=== PATIENT | male | born 1970 | race Caucasian/White ===

== ENCOUNTER 2016-10-11 03:47 | Emergency (ER) | payer OTHER ==
[2016-10-11] VITALS (7 sets, daily range): BP systolic 134–145; BP diastolic 66–85; PULSE 88–92; RESP 18; TEMP 97.5–97.7; O2SAT 92–100
[~2016-10-11] VITALS: Ht 172.7 cm; Wt 105.0 kg
[~2016-10-11 03:47] MED LIST: ALPR1 PO; CARI200T PO; HYDR10TA16 PO; LISI-363 PO; STEROID INJECTIONS EPI
[2016-10-11] MEDS ORDERED: GABA600T PO (04:11)
[2016-10-11] MEDS ORDERED: LISI-515 PO (04:11)
[2016-10-11] MEDS ORDERED: ALPR1TAB3 PO (04:11)
[2016-10-11 04:12] LABS: AUTOMATED NEUTROPHIL # 4.8 TH/MM3 (1.8-7.7); BASOPHIL % 0.5 % (0.0-2.0); EOSINOPHIL # 0.3 TH/MM3 (0-0.4); EOSINOPHIL % 3.1 % (0.0-4.0); HEMATOCRIT 41.4 % (39.0-51.0); HEMO FLAGS DIFF FINAL; LYMPH % 31.1 % (9.0-44.0); LYMPHOCYTE # 2.5 TH/MM3 (1.0-4.8); MEAN CELL VOLUME 88.6 FL (80.0-100.0); MEAN CORPUSCULAR HEMOGLOBIN 30.5 PG (27.0-34.0); MEAN CORPUSCULAR HGB CONC 34.4 % (32.0-36.0); MONO % 7.7 % (0.0-8.0); NEUT % 57.6 % (16.0-70.0); PLATELET COUNT 306 TH/MM3 (150-450); RED BLOOD COUNT 4.68 MIL/MM3 (4.50-5.90); RED CELL DISTRIBUTION WIDTH 12.4 % (11.6-17.2); WHITE BLOOD COUNT 8.2 TH/MM3 (4.0-11.0)
[2016-10-11] MEDS: SODIUM CHLOR 0.9% 1000 ML INJ 1,000 ML IV SCH ×2 (04:25→05:11)
[2016-10-11] MEDS ORDERED: HYDROmorphone HCL PF 1 MG/ML VIAL IVP ONE ×2 (04:30→04:45)
[2016-10-11] MEDS ORDERED: ONDANSETRON HCL 4 MG/2 ML VIAL IV ONE ×2 (04:30→04:45)
--- NOTE | 2016-10-11 04:30 | PD ---
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 It is associated with nausea but no vomiting. He denies any food intolerance. He states that large meals do not affect his pain. He denies any melanotic or bloody stools. He denies any abdominal distention. He denies any diarrhea. He denies any dysuria, frequency or urgency. He denies any fever. He denies any significant weight change, there may be a slight weight loss. The pain sometimes radiates to the left scapular area. It is a 7/10. The pain is mostly dull but with episodes of sharp stabbing sensation, like "someone punching me". The only medical problems he has are hypertension, anxiety and chronic back pain. He is a nondrinker of alcohol and has never smoked. He denies any cough, chest pain or shortness of breath. PFSH Past Medical History Anxiety: Yes Cardiovascular Problems: Yes Diminished Hearing: No Hypertension: Yes Musculoskeletal: Yes (BACK PAIN) Immunizations Current: Yes Tetanus Vaccination: < 5 Years Influenza Vaccination: Yes Social History Alcohol Use: No Tobacco Use: No Substance Use: No Allergies-Medications (Allergen,Severity, Reaction): Coded Allergies: Sulfa (Verified Allergy, Severe, 10/11/16) Reported Meds & Prescriptions Reported Meds & Active Scripts Active Reported Gabapentin 600 Mg Tab 600 Mg PO BID Lisinopril 20 Mg Tab 20 Mg PO DAILY Alprazolam 1 Mg Tab 1 Mg PO Q6H PRN Review of Systems Except as stated in HPI: all other systems reviewed are Neg Physical Exam Narrative GENERAL: The patient is alert, oriented 3 in moderate apparent distress with his abdominal pain. His vital signs show blood pressure 134/85 but are otherwise normal. SKIN: Warm and dry. HEAD: Atraumatic. Normocephalic. EYES: Pupils equal and round. No scleral icterus. No injection or drainage. ENT: No nasal bleeding or discharge. Mucous membranes pink and moist. NECK: Trachea midline. No JVD. CARDIOVASCULAR: Regular rate and rhythm. No murmur appreciated. RESPIRATORY: No accessory muscle use. Clear to auscultation. Breath sounds equal bilaterally. GASTROINTESTINAL: Abdomen soft, with tenderness to direct palpation in the left upper quadrant, nondistended. Hepatic and splenic margins not palpable. No masses are felt. No guarding or rebound is present. MUSCULOSKELETAL: No obvious deformities. No clubbing. No cyanosis. No edema. NEUROLOGICAL: Awake and alert. No obvious cranial nerve deficits. Motor grossly within normal limits. Normal speech. PSYCHIATRIC: Appropriate mood and affect; insight and judgment normal. RECTAL EXAM: No masses or tenderness, stool is brown and guaiac negative. Data Data Last Documented VS Vital Signs Date Time Temp Pulse Resp B/P Pulse Ox O2 Delivery O2 Flow Rate FiO2 10/11/16 06:15 18 10/11/16 06:15 88 136/66 98 Room Air 10/11/16 04:03 97.5 Orders Complete Blood Count With Diff (10/11/16 03:51) Comprehensive Metabolic Panel (10/11/16 03:51) Urinalysis - C+S If Indicated (10/11/16 03:51) Iv Access Insert/Monitor (10/11/16 03:51) Oximetry (10/11/16 03:51) Lipase (10/11/16 03:51) Ct Abd/Pel W Iv Contrast(Rout) (10/11/16 04:15) Ondansetron Inj (Zofran Inj) (10/11/16 04:30) Hydromorphone Pf Inj (Dilaudid Pf Inj) (10/11/16 04:30) Sodium Chlor 0.9% 1000 Ml Inj (Ns 1000 M (10/11/16 04:45) Ondansetron Inj (Zofran Inj) (10/11/16 04:45) Hydromorphone Pf Inj (Dilaudid Pf Inj) (10/11/16 04:45) Iohexol 350 Inj (Omnipaque 350 Inj) (10/11/16 05:11) Ketorolac Inj (Toradol Inj) (10/11/16 05:15) Morphine Inj (Morphine Inj) (10/11/16 05:45) Sodium Chlor 0.9% 1000 Ml Inj (Ns 1000 M (10/11/16 06:00) Pantoprazole Inj (Protonix Inj) (10/11/16 06:00) Famotidine Inj (Pepcid Inj) (10/11/16 06:00) Al-Mag Hy-Si 40-40-4 Mg/Ml Liq (Mag-Al P (10/11/16 06:00) Lidocaine 2% Viscous (Xylocaine 2% Visco (10/11/16 06:00) Morphine Inj (Morphine Inj) (10/11/16 06:30) Labs Laboratory Tests Test 10/11/16 10/11/16 04:00 05:55 White Blood Count 8.2 TH/MM3 Red Blood Count 4.68 MIL/MM3 Hemoglobin 14.3 GM/DL Hematocrit 41.4 % Mean Corpuscular Volume 88.6 FL Mean Corpuscular Hemoglobin 30.5 PG Mean Corpuscular Hemoglobin 34.4 % Concent Red Cell Distribution Width 12.4 % Platelet Count 306 TH/MM3 Mean Platelet Volume 7.2 FL Neutrophils (%) (Auto) 57.6 % Lymphocytes (%) (Auto) 31.1 % Monocytes (%) (Auto) 7.7 % Eosinophils (%) (Auto) 3.1 % Basophils (%) (Auto) 0.5 % Neutrophils # (Auto) 4.8 TH/MM3 Lymphocytes # (Auto) 2.5 TH/MM3 Monocytes # (Auto) 0.6 TH/MM3 Eosinophils # (Auto) 0.3 TH/MM3 Basophils # (Auto) 0.0 TH/MM3 CBC Comment DIFF FINAL Differential Comment Sodium Level 142 MEQ/L Potassium Level 3.7 MEQ/L Chloride Level 105 MEQ/L Carbon Dioxide Level 27.7 MEQ/L Anion Gap 9 MEQ/L Blood Urea Nitrogen 13 MG/DL Creatinine 1.10 MG/DL Estimat Glomerular Filtration 72 ML/MIN Rate Random Glucose 160 MG/DL Calcium Level 8.6 MG/DL Total Bilirubin 0.3 MG/DL Aspartate Amino Transf 27 U/L (AST/SGOT) Alanine Aminotransferase 60 U/L (ALT/SGPT) Alkaline Phosphatase 63 U/L Total Protein 6.9 GM/DL Albumin 3.5 GM/DL Lipase 154 U/L Urine Collection Type VOIDED Urine Color STRAW Urine Turbidity CLEAR Urine pH 5.5 Urine Specific [place] GREATER THAN 1.035 Urine Protein NEG mg/dL Urine Glucose (UA) NEG mg/dL Urine Ketones NEG mg/dL Urine Occult Blood TRACE Urine Nitrite NEG Urine Bilirubin NEG Urine Leukocyte Esterase NEG Urine RBC 0-3 /hpf Urine Squamous Epithelial 0-2 /hpf Cells Microscopic Urinalysis Comment CULT NOT INDICATED MDM Medical Decision Making Medical Screen Exam Complete: Yes Emergency Medical Condition: Yes Medical Record Reviewed: Yes Interpretation(s) The CBC is normal and the complete metabolic profile is normal except for a GFR of 72 and glucose of 160. The lipase is normal. The CT abdomen/pelvis with IV contras shows no evidence of acute abdominal or pelvic process. No masses are identified. He does have some constipation and a nonobstructing 5 mm left renal stone in the lower pole of the left kidney. Differential Diagnosis Pancreatitis, pancreatic pseudocyst, colitis, pyelonephritis, intestinal tumor, gastric ulcer, anemia, electrolyte disorder, renal insufficiency, urinary stone , urinary tract infection, dehydration Narrative Course It is now 0442 and the patient's pain has not changed despite 1 mg of Dilaudid IV. He also has some slight persistent nausea. He will be given an additional 1 mg of Dilaudid and 4 g of Zofran IV. The patient got no relief from a total of 2 mg of Dilaudid IV and 8 of Zofran IV. He is given 30 of Toradol IV and he got no relief with this. He states he gets relief from morphine and the patient was given 5 mg of morphine IV. The patient has abdominal pain of unknown etiology. He also has mild dehydration, his urine specific gravity 1.035. This may be ulcer pain and the patient may benefit from seeing a staking engineer. He has not had lower endoscopy, his age is 45 and in a few years he will need lower endoscopy to rule out rectal cancer. The patient should benefit from upper endoscopy to rule out an ulcer. There is no blood in his stool. The patient is not anemic. The lipase is normal and this does not appear to be pancreatic in origin. I do not think the patient's left renal stone is causing the patient's symptoms. The stone is nonobstructing and is well lateral of where the patient's symptoms are. However, he does have episodes of sharp pain that resemble urinary stone discomfort. He is having normal bowel movements and constipation is an unlikely source of his problem that has been going on for almost a month. Diagnosis Primary Impression: Abdominal pain of unknown etiology Additional Impressions: Constipation Dehydration Additional Instructions: As we discussed, follow-up with a staking engineer. They will be able to do an upper endoscopy to rule out gastric pathology. Even though there is no obstructing stone, it may be possible that you are getting some pain from the 5 mm left renal stone. A urologist will need to be consolidative nothing is found with gastroenterology. Disposition: 01 DISCHARGE HOME Condition: Stable Zack No MD Oct 11, 2016 04:30
[2016-10-11 04:32] LABS: CHLORIDE 105 MEQ/L (98-107); POTASSIUM 3.7 MEQ/L (3.5-5.1); SODIUM (NA) 142 MEQ/L (136-145)
[2016-10-11 04:36] LABS: ANION GAP 9 MEQ/L (5-15); BICARBONATE 27.7 MEQ/L (21.0-32.0); BLOOD UREA NITROGEN 13 MG/DL (7-18)
[2016-10-11 04:39] LABS: ALT (GPT) 60 U/L (12-78); AST (GOT) 27 U/L (15-37); GLOMERULAR FILTRATION RATE 72 ML/MIN (>89)
[2016-10-11 04:41] LABS: TOTAL BILIRUBIN ADULT 0.3 MG/DL (0.2-1.0)
[2016-10-11 04:42] LABS: ALKALINE PHOSPHATASE 63 U/L (45-117)
[2016-10-11] MEDS ORDERED: IOHEXOL 350 MG/ML 10 ML VIAL (for RAD DIAG) IV ONE (05:11)
[2016-10-11] MEDS ORDERED: KETOROLAC TROMETHAMINE 60 MG/2 ML (IM) VIAL IVP ONE (05:15)
--- NOTE | 2016-10-11 05:29 | RADHPO ---
EXAM DATE/TIME: 10/11/2016 04:53 [facility] COMPARISON: No previous studies available for comparison. INDICATIONS : Left upper quadrant pain with nausea for three weeks. IV CONTRAST: 94 cc Omnipaque 350 (iohexol) IV ORAL CONTRAST: No oral contrast ingested. RADIATION DOSE: 19.43 CTDIvol (mGy) MEDICAL HISTORY : Hypertension. SURGICAL HISTORY : None. ENCOUNTER: Initial ACUITY: 3 weeks PAIN SCALE: 6/10 LOCATION: Left upper quadrant TECHNIQUE: Volumetric scanning of the abdomen and pelvis was performed. Using automated exposure control and ad justment of the mA and/or kV according to patient size, radiation dose was kept as low as reasonably achievable to obtain optimal diagnostic quality images. FINDINGS: LOWER LUNGS: The visualized lower lungs are clear. LIVER: Homogeneous density without lesion. There is no dilation of the biliary tree. No calcified gallston es. SPLEEN: Normal size without lesion. PANCREAS: Within normal limits. KIDNEYS: Normal in size and shape. There is no mass, stone or hydronephrosis. There is a single stone within the left kidney without hydronephrosis measuring 5 mm in the lower pole ADRENAL GLANDS: Within normal limits. VASCULAR: There is no aortic aneurysm. BOWEL/MESENTERY: The stomach, small bowel, and colon demonstrate no acute abnormality. There is no free intraperitone al air or fluid. There is a large amount of fecal material throughout the colon consistent with const ipation.ABDOMINAL WALL: Within normal limits. RETROPERITONEUM: There is no lymphadenopathy. BLADDER: No wall thickening or mass. REPRODUCTIVE: Within normal limits. INGUINAL: There is no lymphadenopathy or hernia. MUSCULOSKELETAL: Within normal limits for patient age. CONCLUSION: 1. No evidence of acute abdominal or pelvic process. No masses are identified. 2. Constipation 3. Nonobstructing left renal stone Matthew Boudreaux MD on October 11, 2016 at 5:22 Board Certified Radiologist. This report was verified electronically.
[2016-10-11] MEDS ORDERED: MORPHINE SULFATE 8 MG/ML INJ IV PUSH ONE ×2 (05:45→06:30)
[2016-10-11 06:00] LABS: BLOOD, URINE TRACE (NEG); GLUCOSE,URINE NEG (NEG); KETONE, URINE NEG (NEG); NITRITE,URINE NEG (NEG); PH, URINE 5.5 (5.0-8.5)
[2016-10-11] MEDS ORDERED: LIDOCAINE VISCOUS 2% SOLN 15 ML UDC PO ONE (06:00)
[2016-10-11] MEDS ORDERED: PANTOPRAZOLE SODIUM 40 MG VIAL IVP ONE (06:00)
[2016-10-11] MEDS ORDERED: ALUMINUM/MAGNESIUM/SIMETH 30 ML CUP PO ONE (06:00)
[2016-10-11] MEDS ORDERED: FAMOTIDINE 20 MG/2 ML VIAL IV PUSH ONE (06:00)
[2016-10-11] MEDS ORDERED: SODIUM CHLOR 0.9% 1000 ML INJ 1,000 ML IV SCH (06:00)
[2016-10-11 06:03] LABS: METHOD OF COLLECTION VOIDED; URINE COLOR STRAW (YELLW/STRAW)
[2016-10-11 06:05] LABS: RBC, URINE 0-3 /hpf (0-3)
[2016-10-11 06:06] LABS: COMMENT (UR) CULT NOT INDICATED; CULTURE IF INDICATED CULT NOT INDICATED; SQUAMOUS EPITHELIAL CELL URINE 0-2 /hpf (0-5)
== END 2016-10-11 07:31 | disposition home or self-care (01) ==
LOC: PHED 03:47
DX: R10.12 Left upper quadrant pain (principal); K59.00 Constipation, unspecified; E86.0 Dehydration; I10 Essential (primary) hypertension; N20.0 Calculus of kidney
CPT/HCPCS: 74177; 80053; 81001; 83690; 85025; 96361; 96374; 96375; 96376; 99284; C9113; J1170; J1885; J2270; J2405; J7030; Q9967

== ENCOUNTER 2016-10-13 00:42 | Emergency (ER) | payer OTHER ==
[~2016-10-13] VITALS: Ht 172.7 cm; Wt 106.0 kg
[~2016-10-13 00:42] MED LIST changes: -ALPR1 PO; +ALPR1TAB3 PO; -CARI200T PO; +GABA600T PO; -HYDR10TA16 PO; -LISI-363 PO; +LISI-515 PO; -STEROID INJECTIONS EPI
[2016-10-13 00:56] VITALS: BP 139/91; PULSE 86; RESP 18; TEMP 98.3; O2SAT 97
[2016-10-13] MEDS ORDERED: SODIUM CHLORIDE 0.9% FLUSH 5 ML FLUSH IVF PRN (01:15)
[2016-10-13] MEDS ORDERED: ONDANSETRON HCL 4 MG/2 ML VIAL IV PUSH ONE (01:15)
[2016-10-13] MEDS ORDERED: KETOROLAC TROMETHAMINE 30 MG/ML (IVP) VIAL IV PUSH ONE (01:15)
[2016-10-13] MEDS ORDERED: HYDR-3535 PO (01:16)
[2016-10-13 01:30] VITALS: O2SAT 99
[2016-10-13 01:43] LABS: AUTOMATED NEUTROPHIL # 5.7 TH/MM3 (1.8-7.7); BASOPHIL % 0.3 % (0.0-2.0); EOSINOPHIL # 0.3 TH/MM3 (0-0.4); EOSINOPHIL % 3.4 % (0.0-4.0); HEMATOCRIT 40.4 % (39.0-51.0); HEMO FLAGS DIFF FINAL; LYMPH % 24.2 % (9.0-44.0); LYMPHOCYTE # 2.1 TH/MM3 (1.0-4.8); MEAN CELL VOLUME 89.4 FL (80.0-100.0); MEAN CORPUSCULAR HEMOGLOBIN 30.7 PG (27.0-34.0); MEAN CORPUSCULAR HGB CONC 34.4 % (32.0-36.0); MONO % 7.4 % (0.0-8.0); NEUT % 64.7 % (16.0-70.0); PLATELET COUNT 283 TH/MM3 (150-450); RED BLOOD COUNT 4.52 MIL/MM3 (4.50-5.90); RED CELL DISTRIBUTION WIDTH 13.2 % (11.6-17.2); WHITE BLOOD COUNT 8.7 TH/MM3 (4.0-11.0)
[2016-10-13 01:58] LABS: CHLORIDE 108 MEQ/L (98-107); POTASSIUM 3.9 MEQ/L (3.5-5.1); SODIUM (NA) 145 MEQ/L (136-145)
[2016-10-13 02:01] LABS: ANION GAP 8 MEQ/L (5-15); BICARBONATE 28.8 MEQ/L (21.0-32.0); BLOOD UREA NITROGEN 9 MG/DL (7-18); MAGNESIUM 2.4 MG/DL (1.5-2.5)
[2016-10-13 02:04] LABS: ALT (GPT) 49 U/L (12-78); AST (GOT) 24 U/L (15-37); GLOMERULAR FILTRATION RATE 72 ML/MIN (>89)
[2016-10-13 02:06] LABS: TOTAL BILIRUBIN ADULT 0.3 MG/DL (0.2-1.0)
[2016-10-13 02:07] LABS: ALKALINE PHOSPHATASE 50 U/L (45-117)
--- NOTE | 2016-10-13 02:36 | PD ---
HPI Chief Complaint: Abdominal Pain Time Seen by Provider: 02:27 Travel History International Travel<30 days: No Contact w/Intl Traveler<30days: No Traveled to known affect area: No History of Present Illness HPI 45-year-old male presents to the emergency department from work for evaluation of left upper quadrant abdominal pain. Symptoms have been present for several weeks. Patient was recently seen 10/11/16 for same complaint. At that time patient's pain was 7/10 in intensity and radiated to his left scapular area. Patient underwent imaging study which revealed by CT abdomen and pelvis noncontrast a nonobstructing 5 mm kidney stones in the left kidney. Lab work was otherwise unremarkable. Patient received multiple medications in the emergency department including Zofran Dilaudid and morphine and Toradol. Patient was encouraged to follow-up with his primary care provider follow up with the ops manager and follow-up with an urologist as needed. He should reports this evening while at work symptoms persisted and develop nausea so decided to be seen in the emergency department. Patient reports that he is able to grab the area by grabbing his left anterior lower rib area and reproduce the pain. Patient denies any injury or fall. Patient does not report any skin rash area. Patient does have history of hypertension but does not smoke cigarettes is not diabetic does not have dyslipidemia and no family history premature onset heart disease. Patient does report father in his 40s from a cerebral aneurysm mother early due to complications from cancer a sibling at 37 with complications from lupus. Patient's had no recent febrile illness or respiratory illness. Patient does not report any pleuritic pain. Patient does not report any shortness of breath. Patient is unable to identify exacerbating or alleviating factors. Currently pain is described as 5/10 in intensity. Patient does have prescription for pain medication at home but does not take this medication. PFSH Past Medical History Narrative Medical Anxiety hypertension chronic low back pain no tobacco use no alcohol use nursing notes reviewed Anxiety: Yes Cardiovascular Problems: Yes Diminished Hearing: No Hypertension: Yes Musculoskeletal: Yes (BACK PAIN) Immunizations Current: Yes Tetanus Vaccination: < 5 Years Social History Alcohol Use: No Tobacco Use: No Substance Use: No Allergies-Medications (Allergen,Severity, Reaction): Coded Allergies: Sulfa (Verified Allergy, Severe, Anaphylaxis, 10/13/16) Reported Meds & Prescriptions Reported Meds & Active Scripts Active Reported Lortab (Hydrocodone-Acetaminophen) 10-325 Mg Tab 1 Tab PO Q6H PRN Gabapentin 600 Mg Tab 600 Mg PO TID Lisinopril 20 Mg Tab 20 Mg PO DAILY Alprazolam 1 Mg Tab 0.5 Mg PO BID Review of Systems General / Constitutional: No: Fever HENT: No: Congestion Cardiovascular: No: Chest Pain or Discomfort Respiratory: No: Shortness of Breath Gastrointestinal: Positive: Abdominal Pain (LUQ) Genitourinary: No: Dysuria, Flank Pain Musculoskeletal: Positive: Myalgias, Arthralgias, Pain (chronic low back pain) Skin: No Hives Neurologic: No: Weakness Psychiatric: No: Anxiety Hematologic/Lymphatic: No: Easy Bruising Physical Exam Narrative GENERAL: Well-developed well-nourished male in no acute distress no respiratory distress SKIN: Warm and dry. HEAD: Normocephalic. EYES: No scleral icterus. No injection or drainage. NECK: Supple, trachea midline. No JVD or lymphadenopathy. CARDIOVASCULAR: Regular rate and rhythm without murmurs, gallops, or rubs. RESPIRATORY: Breath sounds equal bilaterally. No accessory muscle use. GASTROINTESTINAL: Abdomen soft, mild tenderness to palpation left upper quadrant at the lower anterior left rib no ecchymosis no abrasion no vesicular rash, nondistended. No guarding or rebound. MUSCULOSKELETAL: No cyanosis, or edema. BACK: Nontender without obvious deformity. No CVA tenderness. Data Data Last Documented VS Vital Signs Date Time Temp Pulse Resp B/P Pulse Ox O2 Delivery O2 Flow Rate FiO2 10/13/16 02:48 77 16 121/62 96 10/13/16 01:30 Room Air 10/13/16 00:56 98.3 Orders Complete Blood Count With Diff (10/13/16 01:15) Comprehensive Metabolic Panel (10/13/16 01:15) Lipase (10/13/16 01:15) Iv Access Insert/Monitor (10/13/16 01:15) Ecg Monitoring (10/13/16 01:15) Oximetry (10/13/16 01:15) Sodium Chloride 0.9% Flush (Ns Flush) (10/13/16 01:15) Electrocardiogram (10/13/16 01:15) Troponin I (10/13/16 01:15) Ondansetron Inj (Zofran Inj) (10/13/16 01:15) Ketorolac Inj (Toradol Inj) (10/13/16 01:15) Magnesium (Mg) (10/13/16 01:15) Labs Laboratory Tests Test 10/13/16 01:32 White Blood Count 8.7 TH/MM3 Red Blood Count 4.52 MIL/MM3 Hemoglobin 13.9 GM/DL Hematocrit 40.4 % Mean Corpuscular Volume 89.4 FL Mean Corpuscular Hemoglobin 30.7 PG Mean Corpuscular Hemoglobin 34.4 % Concent Red Cell Distribution Width 13.2 % Platelet Count 283 TH/MM3 Mean Platelet Volume 7.4 FL Neutrophils (%) (Auto) 64.7 % Lymphocytes (%) (Auto) 24.2 % Monocytes (%) (Auto) 7.4 % Eosinophils (%) (Auto) 3.4 % Basophils (%) (Auto) 0.3 % Neutrophils # (Auto) 5.7 TH/MM3 Lymphocytes # (Auto) 2.1 TH/MM3 Monocytes # (Auto) 0.6 TH/MM3 Eosinophils # (Auto) 0.3 TH/MM3 Basophils # (Auto) 0.0 TH/MM3 CBC Comment DIFF FINAL Differential Comment Sodium Level 145 MEQ/L Potassium Level 3.9 MEQ/L Chloride Level 108 MEQ/L Carbon Dioxide Level 28.8 MEQ/L Anion Gap 8 MEQ/L Blood Urea Nitrogen 9 MG/DL Creatinine 1.10 MG/DL Estimat Glomerular Filtration 72 ML/MIN Rate Random Glucose 94 MG/DL Calcium Level 8.3 MG/DL Magnesium Level 2.4 MG/DL Total Bilirubin 0.3 MG/DL Aspartate Amino Transf 24 U/L (AST/SGOT) Alanine Aminotransferase 49 U/L (ALT/SGPT) Alkaline Phosphatase 50 U/L Troponin I LESS THAN 0.02 NG/ML Total Protein 6.8 GM/DL Albumin 3.6 GM/DL Lipase 117 U/L [facility] Medical Decision Making Medical Screen Exam Complete: Yes Emergency Medical Condition: Yes Medical Record Reviewed: Yes Interpretation(s) EKG normal sinus rhythm rate [address] elevation or injury pattern change noted CBC & BMP Diagram 10/13/16 01:32 troponin I: less than 0.02, not elevated Differential Diagnosis Abdominal pain, abdominal wall pain, gastritis, peptic ulcer disease, atypical choledocholithiasis, pancreatitis, ACS, shingles Narrative Course IV access obtained specimens collected and sent for resulting EKG ordered EKG reveals no acute ST elevation or injury pattern change; patient administer Toradol and Zofran Advise resulted and found to be grossly within normal limits: Patient stable for outpatient management Patient encouraged to keep appointments as presently scheduled and follow-up as presently scheduled and to return to the emergency department for any concerns Diagnosis Primary Impression: Abdominal pain of unknown etiology Referrals: Primary Care Physician call for appointment Patient Instructions: General Instructions Additional Instructions: Follow-up with your primary care provider Keep appointment with ops manager as currently scheduled Follow-up with your primary care provider Return to the emergency department for any concerns or change in condition Take ibuprofen/Motrin/Advil every 6-8 hours as tolerated Continue current prescription medications as presently prescribed Med/Other Pt SpecificInfo: No Change to Meds Disposition: 01 DISCHARGE HOME Condition: Stable Caridad Woodruff MD Oct 13, 2016 02:36
[2016-10-13 02:48] VITALS: BP 121/62
--- NOTE | 2016-10-14 06:53 | EKG ---
Date Performed: 10/13/2016 Time Performed: 01:19:36 PTAGE: 45 years EKG: Sinus rhythm . Nonspecific ST-T wave changes Compared to prior tracing no significant change PREVIOUS TRACING : 12/23/2011 11.24 DOCTOR: Omid Corona Interpretating Date/Time 10/14/2016 06:52:04
== END 2016-10-13 02:50 | disposition home or self-care (01) ==
LOC: PHED 00:42
DX: R10.12 Left upper quadrant pain (principal); R11.0 Nausea; I10 Essential (primary) hypertension; Z86.59 Personal history of other mental and behavioral disorders; Z87.39 Personal history of other diseases of the musculoskeletal system and connective tissue; Z86.79 Personal history of other diseases of the circulatory system
CPT/HCPCS: 80053; 83690; 83735; 84484; 85025; 93005; 96374; 96375; 99284; J1885; J2405

== ENCOUNTER 2017-03-24 03:18 | Emergency (ER) | payer SELFPAY ==
[~2017-03-24] VITALS: Ht 172.7 cm; Wt 99.0 kg
[~2017-03-24 03:18] MED LIST changes: +HYDR-3535 PO
[2017-03-24 03:24] VITALS: BP 157/73; PULSE 75; RESP 18; TEMP 98.3; O2SAT 99
--- NOTE | 2017-03-24 03:40 | PD ---
HPI Chief Complaint: right arm injury Time Seen by Provider: 03:34 Travel History International Travel<30 days: No Contact w/Intl Traveler<30days: No Traveled to known affect area: No History of Present Illness HPI 46-year-old male patient presents to the ER today, states that he had been lifting a mattress 3 days ago and felt pain in the right mid humeral region. He states he has been having pain since then and now feels tingling in his right first and second digits. He states that that has happened over last day or so. He denies any other issues or injuries. Modifying Factors: None Associated Signs & Symptoms: Right arm injury Risk Factors: None PFSH Past Medical History Anxiety: Yes Cardiovascular Problems: Yes Diminished Hearing: No Hypertension: Yes Musculoskeletal: Yes (BACK PAIN) Immunizations Current: Yes Social History Alcohol Use: No Tobacco Use: No Substance Use: No Allergies-Medications (Allergen,Severity, Reaction): Coded Allergies: Sulfa (Verified Allergy, Severe, Anaphylaxis, 03/24/17) Reported Meds & Prescriptions Reported Meds & Active Scripts Active No Active Prescriptions or Reported Medications Review of Systems Except as stated in HPI: all other systems reviewed are Neg Physical Exam Narrative GENERAL: Well-nourished, well-developed middle age male patient in mild distress. Awake and oriented 3. SKIN: Focused skin assessment warm/dry. HEAD: Normocephalic. EYES: No scleral icterus. No injection or drainage. NECK: Supple, trachea midline. No JVD or lymphadenopathy. EXTREMITIES: No clubbing, cyanosis, or edema. No joint tenderness, effusion, or edema noted. There is tenderness to palpation in the right mid humeral area, biceps muscle level with no palpable deformities. Arm is otherwise neurovascularly intact with paresthesia in the right first 2 digits. 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 Normal digital flexion in all fingers. MUSCULOSKELETAL: No cyanosis, or edema. BACK: Nontender without obvious deformity. No CVA tenderness. Data Data Last Documented VS Vital Signs Date Time Temp Pulse Resp B/P Pulse Ox O2 Delivery O2 Flow Rate FiO2 03/24/17 03:45 75 03/24/17 03:42 98.3 18 157/73 99 Orders Humerus (Min 2vws) (03/24/17 03:34) Tramadol-Acetamin 37.5-325 Mg (Ultracet (03/24/17 03:45) MDM Medical Decision Making Medical Screen Exam Complete: Yes Emergency Medical Condition: Yes Medical Record Reviewed: Yes Interpretation(s) Last 24 hours Impressions Humerus X-Ray 03/24/17 0334 Signed Impressions: Service Date/Time: Friday, March 24, 2017 03:46 - CONCLUSION: Negative two-view trauma study. Cheikh Ramirez MD Differential Diagnosis Right arm injurymuscle strain versus tendon injury versus bony injury Narrative Course X-ray did not show any signs of acute bony injuries. Patient had been given tramadol in the ER for symptomatic relief or pain. At this point, my plan would be to place him in a arm sling and have him follow-up with orthopedics for any ongoing symptoms. Return for any worsening in pain or new symptoms as needed. The plan has been discussed with him and he states understanding. Continue taking Aleve as needed for pain and tramadol as needed for any further relief. Arm sling given in the ER. Avoid heavy lifting and strenuous activity with the right arm. Diagnosis Primary Impression: Muscle strain, upper arm Med/Other Pt SpecificInfo: Prescription(s) given Scripts Tramadol 50 Mg Tab50 Mg PO Q6H PRN (PAIN) #15 TAB Ref 0 Prov:Maria Del Carmen Gross MD 03/24/17 Disposition: 01 DISCHARGE HOME Condition: Stable Maria Del Carmen Gross MD Mar 24, 2017 03:40
[2017-03-24 03:42] VITALS: BP 157/73; PULSE 75; RESP 18; TEMP 98.3; O2SAT 99
[2017-03-24] MEDS ORDERED: traMADol/ACETAMINOPHEN 37.5/325 1 TAB PO ONE (03:45)
--- NOTE | 2017-03-24 04:00 | RADRPT ---
EXAM DATE/TIME: 03/24/2017 03:46 [facility] COMPARISON: No previous studies available for comparison. INDICATIONS : Right humerus pain from unknown injury. MEDICAL HISTORY : Prior injury to right shoulder. SURGICAL HISTORY : None. ENCOUNTER: Initial ACUITY: 1 day PAIN SCORE: 10/10 LOCATION: Right proximal humerus. FINDINGS: Two view examination of the right humerus demonstrates no evidence of fracture or dislocation. Bony mineralization is normal. The soft tissue structures are intact. CONCLUSION: Negative two-view trauma study. Cheikh Ramirez MD on March 24, 2017 at 3:58 Board Certified Radiologist. This report was verified electronically.
[2017-03-24] MEDS ORDERED: TRAM50TA PO (04:17)
[2017-03-24 04:38] VITALS: BP 148/72; PULSE 72; RESP 18; O2SAT 99
== END 2017-03-24 04:39 | disposition home or self-care (01) ==
LOC: PHED 03:18
DX: S46.811A Strain of other muscles, fascia and tendons at shoulder and upper arm level, right arm, initial encounter (principal); I10 Essential (primary) hypertension; X50.0XXA Overexertion from strenuous movement or load, initial encounter; Y92.003 Bedroom of unspecified non-institutional (private) residence as the place of occurrence of the external cause
CPT/HCPCS: 73060; 99283

== ENCOUNTER 2017-07-24 11:22 | Emergency (ER) | payer SELFPAY ==
[~2017-07-24 11:22] MED LIST changes: -ALPR1TAB3 PO; -GABA600T PO; -HYDR-3535 PO; -LISI-515 PO; +TRAM50TA PO
[2017-07-24 11:42] VITALS: BP 153/80; PULSE 82; RESP 18; TEMP 98; O2SAT 98
[2017-07-24] MEDS ORDERED: HYDR-3583 PO (11:45)
[2017-07-24] MEDS ORDERED: AMBI5TAB PO (11:45)
[2017-07-24] MEDS ORDERED: GABA600T PO (11:45)
[2017-07-24] MEDS ORDERED: SODIUM CHLOR 0.9% 1000 ML INJ 1,000 ML IV SCH (11:54)
[2017-07-24] MEDS ORDERED: ONDANSETRON HCL 4 MG/2 ML VIAL IVP ONE (12:00)
[2017-07-24] MEDS ORDERED: SODIUM CHLORIDE 0.9% FLUSH 10 ML FLUSH IV FLUSH PRN (12:00)
[2017-07-24] MEDS ORDERED: MORPHINE SULFATE 4 MG/ML INJ IV PUSH ONE (12:00)
--- NOTE | 2017-07-24 12:00 | PD ---
HPI Chief Complaint: Abdominal Pain Time Seen by Provider: 11:47 Travel History International Travel<30 days: No Contact w/Intl Traveler<30days: No Traveled to known affect area: No History of Present Illness HPI 46-year-old male complains of abdominal pain, a lump on the right side of the abdomen, nausea vomiting. Patient states that he started having right-sided back pain 4 days ago. Patient started having nausea vomiting and a lump on the right side abdomen since last night. Patient denies any fever chills. Patient denies any injury to the abdomen. Patient has history of chronic back pain and has been taking gabapentin. Patient takes hydrocodone occasionally for severe pain. Patient denies any headache. Patient denies any chest pain or shortness of breath. Patient denies any dysuria or frequency. Patient states that the pain is cramping pain localized to right side the abdomen. Patient denies any pain radiation. On a scale of 1-10 the pain is an 8. PFSH Past Medical History Anxiety: Yes Cardiovascular Problems: Yes Diminished Hearing: No Hypertension: Yes Musculoskeletal: Yes (BACK PAIN) Immunizations Current: Yes Influenza Vaccination: Yes ?: Not Social History Alcohol Use: No Tobacco Use: No Substance Use: No Allergies-Medications (Allergen,Severity, Reaction): Coded Allergies: Sulfa (Sulfonamide Antibiotics) (Unverified Allergy, Severe, Anaphylaxis, 07/24/17) Reported Meds & Prescriptions Reported Meds & Active Scripts Active Reported Ambien (Zolpidem Tartrate) 5 Mg Tab 5 Mg PO HS PRN Gabapentin 600 Mg Tab 600 Mg PO TID Hydrocodone-Acetaminophen 10-325 mg Tab 1 Tab PO Q4H PRN Review of Systems General / Constitutional: No: Fever Eyes: No: Visual changes HENT: No: Headaches Cardiovascular: No: Chest Pain or Discomfort Respiratory: No: Shortness of Breath Gastrointestinal: Positive: Nausea, Vomiting, Abdominal Pain Genitourinary: No: Dysuria Musculoskeletal: No: Pain Skin: No Rash Neurologic: No: Weakness Psychiatric: No: Depression Endocrine: No: Polydipsia Hematologic/Lymphatic: No: Easy Bruising Physical Exam Narrative GENERAL: Well-nourished, well-developed patient. SKIN: Focused skin assessment warm/dry. HEAD: Normocephalic. EYES: No scleral icterus. No injection or drainage. NECK: Supple, trachea midline. No JVD or lymphadenopathy. CARDIOVASCULAR: Regular rate and rhythm without murmurs, gallops, or rubs. RESPIRATORY: Breath sounds equal bilaterally. No accessory muscle use. GASTROINTESTINAL: Abdomen soft, nondistended. Patient has soft tissue mass right side abdomen right flank area. Mild tenderness on palpation. No redness no heat noted on the overlying skin. MUSCULOSKELETAL: No cyanosis, or edema. BACK: Nontender without obvious deformity. No CVA tenderness. Neurologic exam normal. Data Data Last Documented VS Vital Signs Date Time Temp Pulse Resp B/P (MAP) Pulse Ox O2 Delivery O2 Flow Rate FiO2 07/24/17 13:07 83 18 138/61 (86) 100 07/24/17 12:07 Room Air 07/24/17 11:42 98.0 Orders Orders Complete Blood Count With Diff (07/24/17 11:54) Comprehensive Metabolic Panel (07/24/17 11:54) Lipase (07/24/17 11:54) Urinalysis - C+S If Indicated (07/24/17 11:54) Ct Abd/Pel W Iv Contrast(Rout) (07/24/17 11:54) Iv Access Insert/Monitor (07/24/17 11:54) Ecg Monitoring (07/24/17 11:54) Oximetry (07/24/17 11:54) Morphine Inj (Morphine Inj) (07/24/17 12:00) Ondansetron Inj (Zofran Inj) (07/24/17 12:00) Sodium Chlor 0.9% 1000 Ml Inj (Ns 1000 M (07/24/17 11:54) Sodium Chloride 0.9% Flush (Ns Flush) (07/24/17 12:00) Iohexol 350 Inj (Omnipaque 350 Inj) (07/24/17 12:58) Labs Laboratory Tests Test 07/24/17 12:00 07/24/17 13:00 White Blood Count 7.6 TH/MM3 Red Blood Count 4.76 MIL/MM3 Hemoglobin 14.5 GM/DL Hematocrit 42.7 % Mean Corpuscular Volume 89.7 FL Mean Corpuscular Hemoglobin 30.4 PG Mean Corpuscular Hemoglobin Concent 33.9 % Red Cell Distribution Width 12.3 % Platelet Count 237 TH/MM3 Mean Platelet Volume 7.6 FL Neutrophils (%) (Auto) 70.5 % Lymphocytes (%) (Auto) 18.9 % Monocytes (%) (Auto) 7.6 % Eosinophils (%) (Auto) 2.1 % Basophils (%) (Auto) 0.9 % Neutrophils # (Auto) 5.3 TH/MM3 Lymphocytes # (Auto) 1.4 TH/MM3 Monocytes # (Auto) 0.6 TH/MM3 Eosinophils # (Auto) 0.2 TH/MM3 Basophils # (Auto) 0.1 TH/MM3 CBC Comment DIFF FINAL Differential Comment Blood Urea Nitrogen 17 MG/DL Creatinine 1.00 MG/DL Random Glucose 99 MG/DL Total Protein 6.9 GM/DL Albumin 3.7 GM/DL Calcium Level 8.3 MG/DL Alkaline Phosphatase 48 U/L Aspartate Amino Transf (AST/SGOT) 16 U/L Alanine Aminotransferase (ALT/SGPT) 21 U/L Total Bilirubin 0.4 MG/DL Sodium Level 140 MEQ/L Potassium Level 3.6 MEQ/L Chloride Level 103 MEQ/L Carbon Dioxide Level 31.4 MEQ/L Anion Gap 6 MEQ/L Estimat Glomerular Filtration Rate 80 ML/MIN Lipase 90 U/L Urine Collection Type VOIDED Urine Color STRAW Urine Turbidity CLEAR Urine pH 6.0 Urine Specific [place] 1.012 Urine Protein NEG mg/dL Urine Glucose (UA) NEG mg/dL Urine Ketones NEG mg/dL Urine Occult Blood NEG Urine Nitrite NEG Urine Bilirubin NEG Urine Leukocyte Esterase NEG Urine WBC 0-2 /hpf Urine Squamous Epithelial Cells 0-1 /hpf Microscopic Urinalysis Comment CULT NOT INDICATED MDM Medical Decision Making Medical Screen Exam Complete: Yes Emergency Medical Condition: Yes Interpretation(s) Last Impressions Abdomen/Pelvis CT 07/24/17 1154 Signed Impressions: Service Date/Time: Monday, July 24, 2017 12:41 - CONCLUSION: 1. Mild asymmetrical prominence of the right rectus muscle in the anterior abdominal wall subcutaneous adipose tissues just above the level of the umbilicus without focal mass or discernible hematoma. Correlate for site of palpable abnormality. Otherwise, no focal mass or abnormality in the bowel wall or flank. 2. Redemonstration of nonobstructing 6 mm inferior pole left renal calyceal calculus. 3. Otherwise, stable examination. Elton To MD 1323 PM. CBC within normal limit. CMP within normal limit. UA is negative. Differential Diagnosis Differential diagnosis including hernia, colitis, UTI, pyelonephritis, nephrolithiasis. Narrative Course 46-year-old male with soft tissue mass right side abdomen and abdominal pain and nausea vomiting. Diagnosis Primary Impression: Abdominal pain of unknown etiology Patient Instructions: General Instructions Additional Instructions: Mobic as needed for pain. Follow-up with personal physician. Return if worse. Med/Other Pt SpecificInfo: Prescription(s) given Scripts Meloxicam (Mobic) 15 Mg Tab 15 MG PO DAILY for Pain, #20 TAB 0 Refills Prov: Patrick Adamson MD 07/24/17 Disposition: 01 DISCHARGE HOME Condition: Stable Patrick Adamson MD Jul 24, 2017 12:00
[2017-07-24 12:06] LABS: AUTOMATED NEUTROPHIL # 5.3 TH/MM3 (1.8-7.7); BASOPHIL # 0.1 TH/MM3 (0-0.2); BASOPHIL % 0.9 % (0.0-2.0); EOSINOPHIL # 0.2 TH/MM3 (0-0.4); EOSINOPHIL % 2.1 % (0.0-4.0); HEMATOCRIT 42.7 % (39.0-51.0); HEMO FLAGS DIFF FINAL; LYMPH % 18.9 % (9.0-44.0); LYMPHOCYTE # 1.4 TH/MM3 (1.0-4.8); MEAN CELL VOLUME 89.7 FL (80.0-100.0); MEAN CORPUSCULAR HEMOGLOBIN 30.4 PG (27.0-34.0); MEAN CORPUSCULAR HGB CONC 33.9 % (32.0-36.0); MONO % 7.6 % (0.0-8.0); NEUT % 70.5 % (16.0-70.0); PLATELET COUNT 237 TH/MM3 (150-450); RED BLOOD COUNT 4.76 MIL/MM3 (4.50-5.90); RED CELL DISTRIBUTION WIDTH 12.3 % (11.6-17.2); WHITE BLOOD COUNT 7.6 TH/MM3 (4.0-11.0)
[2017-07-24 12:07] VITALS: BP 166/79; PULSE 73; RESP 18; O2SAT 98
[2017-07-24 12:13] LABS: CHLORIDE 103 MEQ/L (98-107); POTASSIUM 3.6 MEQ/L (3.5-5.1); SODIUM (NA) 140 MEQ/L (136-145)
[2017-07-24 12:17] LABS: ANION GAP 6 MEQ/L (5-15); BICARBONATE 31.4 MEQ/L (21.0-32.0); BLOOD UREA NITROGEN 17 MG/DL (7-18)
[2017-07-24 12:20] LABS: ALT (GPT) 21 U/L (12-78); AST (GOT) 16 U/L (15-37); GLOMERULAR FILTRATION RATE 80 ML/MIN (>89)
[2017-07-24 12:22] LABS: TOTAL BILIRUBIN ADULT 0.4 MG/DL (0.2-1.0)
[2017-07-24 12:23] LABS: ALKALINE PHOSPHATASE 48 U/L (45-117)
[2017-07-24] MEDS ORDERED: IOHEXOL 350 MG/ML 10 ML VIAL (for RAD DIAG) IVCONTRAST ONE (12:58)
[2017-07-24 13:07] VITALS: BP 138/61; PULSE 83; RESP 18; O2SAT 100
[2017-07-24 13:11] LABS: BLOOD, URINE NEG (NEG); GLUCOSE,URINE NEG (NEG); KETONE, URINE NEG (NEG); NITRITE,URINE NEG (NEG)
--- NOTE | 2017-07-24 13:14 | RADRPT ---
EXAM DATE/TIME: 07/24/2017 12:41 [facility] COMPARISON: CT ABDOMEN & PELVIS W CONTRAST, October 11, 2016, 4:53. INDICATIONS : Soft tissue mass, right side of abdomen and flank. IV CONTRAST: 81 cc Omnipaque 350 (iohexol) IV ORAL CONTRAST: No oral contrast ingested. RADIATION DOSE: 17.16 CTDIvol (mGy) MEDICAL HISTORY : Hypertension. SURGICAL HISTORY : None. ENCOUNTER: Initial ACUITY: 1 day PAIN SCALE: 6/10 LOCATION: Right flank TECHNIQUE: Volumetric scanning of the abdomen and pelvis was performed. Using automated exposure control and adjustment of the mA and/or kV according to patient size, radiation dose was kept as low as reasonably achievable to obtain optimal diagnostic quality images. DICOM format image data is av ailable electronically for review and comparison. FINDINGS: LOWER LUNGS: The visualized lower lungs are clear. LIVER: Stable subcentimeter hypodense lesions in the segments 6 and 4 the liver which are too sma ll to fully characterize. Liver is otherwise unremarkable. Gallbladder is unremarkable by CT. SPLEEN: Normal size without lesion. PANCREAS: Within normal limits. KIDNEYS: Stable small 6 mm calcified calculus in the posterior inferior pole the left kidney. Kid neys otherwise have is asymmetrical enhancement without evidence for hydronephrosis. ADRENAL GLANDS: Within normal limits. VASCULAR: There is no aortic aneurysm. BOWEL/MESENTERY: The stomach, small bowel, and colon demonstrate no acute abnormality. There is no free intraperitoneal air or fluid. ABDOMINAL WALL: Very small fat containing periumbilical hernia. There is mild asymmetric prominen ce of the right anterior abdominal subcutaneous adipose tissue without a focal mass. There is also sl ight asymmetrical prominence of the right rectus muscle again without a focal discernible mass. RETROPERITONEUM: There is no lymphadenopathy. BLADDER: No wall thickening or mass. REPRODUCTIVE: Within normal limits. INGUINAL: There is no lymphadenopathy or hernia. MUSCULOSKELETAL: Within normal limits for patient age. CONCLUSION: 1. Mild asymmetrical prominence of the right rectus muscle in the anterior abdominal wall subcutaneou s adipose tissues just above the level of the umbilicus without focal mass or discernible hematoma. C orrelate for site of palpable abnormality. Otherwise, no focal mass or abnormality in the bowel wall or flank. 2. Redemonstration of nonobstructing 6 mm inferior pole left renal calyceal calculus. 3. Otherwise, stable examination. Elton To MD on July 24, 2017 at 13:02 Board Certified Radiologist. This report was verified electronically.
[2017-07-24 13:17] LABS: COMMENT (UR) CULT NOT INDICATED; CULTURE IF INDICATED CULT NOT INDICATED; METHOD OF COLLECTION VOIDED; SQUAMOUS EPITHELIAL CELL URINE 0-1 /hpf (0-5); URINE COLOR STRAW (YELLW/STRAW); WBC, URINE 0-2 /hpf (0-5)
[2017-07-24] MEDS ORDERED: MOBI15TA PO (13:25)
== END 2017-07-24 13:46 | disposition home or self-care (01) ==
LOC: PHED 11:22
DX: R10.9 Unspecified abdominal pain (principal); M54.9 Dorsalgia, unspecified
CPT/HCPCS: 74177; 80053; 81001; 83690; 85025; 96361; 96374; 96375; 99285; J2270; J2405; J7030; Q9967

== ENCOUNTER 2017-08-03 14:26 | Emergency (ER) | payer SELFPAY ==
[~2017-08-03 14:26] MED LIST changes: +AMBI5TAB PO; +GABA600T PO; +HYDR-3583 PO; +MOBI15TA PO; -TRAM50TA PO
[2017-08-03 14:52] VITALS: BP 143/86; PULSE 84; RESP 20; TEMP 98; O2SAT 98
[2017-08-03] MEDS ORDERED: BACL10TA PO (15:09)
--- NOTE | 2017-08-03 16:18 | PD ---
HPI Chief Complaint: Abdominal Pain Time Seen by Provider: 15:17 Travel History International Travel<30 days: No Contact w/Intl Traveler<30days: No Traveled to known affect area: No History of Present Illness HPI This patient complains of a bulging out in the right side of his abdominal wall. Been going on 10 days. It causes some pain and discomfort there. He also has some very hypersensitive skin over the region. He's noticed no rash. He was here 10 days ago for the same thing and had a negative CT of abdomen and pelvis. Symptoms severity is moderate. No trauma or injury or fever. No alleviating factors. PFSH Past Medical History Anxiety: Yes Cardiovascular Problems: Yes Diminished Hearing: No Hypertension: Yes Musculoskeletal: Yes (BACK PAIN) Immunizations Current: Yes Social History Alcohol Use: No Tobacco Use: No Substance Use: No Allergies-Medications (Allergen,Severity, Reaction): Coded Allergies: Sulfa (Sulfonamide Antibiotics) (Unverified Allergy, Severe, Anaphylaxis, 07/24/17) Reported Meds & Prescriptions Reported Meds & Active Scripts Active Reported Baclofen 10 Mg Tab 10 Mg PO Q8HR Ambien (Zolpidem Tartrate) 5 Mg Tab 5 Mg PO HS PRN Gabapentin 600 Mg Tab 600 Mg PO TID Hydrocodone-Acetaminophen 10-325 mg Tab 1 Tab PO Q4H PRN Review of Systems General / Constitutional: No: Fever Eyes: No: Visual changes HENT: No: Headaches Cardiovascular: No: Chest Pain or Discomfort Respiratory: No: Shortness of Breath Gastrointestinal: Positive: Abdominal Pain Genitourinary: No: Dysuria Musculoskeletal: Positive: Pain Skin: No Rash Neurologic: No: Weakness Psychiatric: No: Depression Endocrine: No: Polydipsia Hematologic/Lymphatic: No: Easy Bruising Physical Exam Narrative GENERAL: Well-nourished, well-developed patient in no apparent distress. SKIN: Focused skin assessment reveals no rash and nodules. Skin is Warm and dry. HEAD: Atraumatic. Normocephalic. EYES: Pupils equal and round. No scleral icterus. No injection or drainage. ENT: No nasal bleeding or discharge. Mucous membranes pink and moist. NECK: Trachea midline. No JVD. CARDIOVASCULAR: Regular rate and rhythm. No murmur appreciated. RESPIRATORY: No accessory muscle use. Clear to auscultation. Breath sounds equal bilaterally. GASTROINTESTINAL: Abdomen soft, there is an asymmetric bulging out of the abdominal wall in the right side midaxillary line. That area is tender. There is no obvious hernia or erythema or bruising or fluctuance. Hepatic and splenic margins not palpable. MUSCULOSKELETAL: No obvious deformities. No clubbing. No cyanosis. No edema. NEUROLOGICAL: Awake and alert. No obvious cranial nerve deficits. Motor grossly within normal limits. Normal speech. PSYCHIATRIC: Appropriate mood and affect; insight and judgment normal. Data Data Last Documented VS Vital Signs Date Time Temp Pulse Resp B/P (MAP) Pulse Ox O2 Delivery O2 Flow Rate FiO2 08/03/17 14:52 98.0 84 20 143/86 (105) 98 MDM Medical Decision Making Medical Screen Exam Complete: Yes Emergency Medical Condition: Yes Medical Record Reviewed: Yes Differential Diagnosis Hernia, peripheral neuropathy, shingles Narrative Course I have reviewed the patient's electronic medical record. Reviewed his visit from [address] scan Etiology of this is unclear. There does appear to be an asymmetrical bulge in the midclavicular line on the right side but CT didn't reveal anything such as mass or tumor etc. No skin findings other than a hypersensitivity Patient is already on Lortab and Neurontin Patient's family physician has evaluated this but he was just told to go to the ER if it gets worse which is not helpful advice. Diagnosis Primary Impression: Abdominal pain of unknown etiology Additional Instructions: Follow-up with primary care or general surgery to discuss this abdominal wall situation Med/Other Pt SpecificInfo: Other Disposition: 01 DISCHARGE HOME Condition: Stable Abhishek Bolden MD Aug 03, 2017 16:18
== END 2017-08-03 16:47 | disposition home or self-care (01) ==
LOC: PHED 14:26
DX: R10.9 Unspecified abdominal pain (principal)
CPT/HCPCS: 99282